=== PATIENT | male | born 1985 | race Caucasian/White ===

== ENCOUNTER 2018-05-23 14:31 | Observation (INO) ==
[2018-05-23] MEDS ORDERED: Potassium Chloride Elixir 20 MEQ/15 ML UDC PO ONE (19:33)
[2018-05-23] MEDS ORDERED: Famotidine 20 MG TABLET PO PRN (20:42)
--- NOTE | 2018-05-23 20:42 | Internal Med History&Physical ---
<Shefali Will - Last Filed: 05/23/18 21:44> Date of Encounter: 05/23/18 Time of Encounter: 20:42 Internal Medicine - H&P: HPI Chief complaint: syncope History of present illness: Mr. Bob is a 33 year old male sent to ED by PCP for syncopal episode. He was having monitor attached in PCP office when he became dizzy and passed out. Admits to urinary incontinence and diaphoresis but did not bite his tongue - he denies feeling of fatigue after this event but admits to "car sick " feeling on previous syncopal episode two weeks ago. He history of loss of consciousness triggered by medical treatment starting 5 years ago. He was taken to ED, were he was found to have sinus bradycardia with PVCs. Negative troponin. CMP with K 3.3 and glucose 113. Holter monitor ordered because of periods of palpitations, weakness and chest tightness triggered by exertion. He has previously been told that he had junctional rhythm. These episodes started in January and one 3 occasions have lasted for days before stopping on own. First time it occurred he went to ER and was told it was due to exhaustion. No other known past medical history. He occasional takes zantac for belching that is worse lately. Family history of palpitation and tachycardia in maternal uncle with unknown diagnosis - no other history of heart disease. Denies tobacco , EtOH or illicit drug use. Past Med Surg Social Fam HX - Past Medical History Medical history: no medical history Psychiatric history: no psych history - Past Surgical History Additional surgical history: femur fracture/orif - Social History Smoking Status: Former smoker Smokeless Tobacco Status: No Alcohol use: none Drug use: none Internal Medicine - H&P: Meds Ranitidine HCl [Zantac 75] 75 mg PO DAILY PRN 05/23/18 [History] 3 Allergy/AdvReac Type Severity Reaction Status Date / Time No Known Allergies Allergy Verified 05/23/18 20:13 All Systems PM: A 10-system review of systems was performed and is negative for pertinent findings except as documented above in the HPI. - Constitutional Constitutional: excessive sweating, no fatigue - EENT Eyes: blurry vision, loss of vision Nose, mouth and throat: no sore throat - Cardiovascular Cardiovascular ROS IM: diaphoresis, irregular heart rhythm, lightheadedness, palpitations, syncope, no chest pain, no dyspnea on exertion - Respiratory Respiratory: no cough, no wheezing - Gastrointestinal Gastrointestinal: no abdominal pain, no constipation, no diarrhea, no vomiting - Genitourinary Genitourinary ROS male: urinary incontinence, no dysuria, no hematuria - Neurological Neurological ROS: no confusion, no focal weakness - Constitutional Vitals: Pulse Resp BP Pulse Ox 92 18 138/99 98 05/23/18 17:28 05/23/18 17:28 05/23/18 17:28 05/23/18 17:28 General appearance: Present: cooperative, A&O X 3, no acute distress, answers questions appropriately Exam: PVC seen on tele I was in room after patient anticipates it - Head Head exam: Present: atraumatic, normocephalic - ENT ENT exam: Present: mucous membranes moist, normal oropharynx - Respiratory Respiratory exam: Present: CTAB. Absent: rales, wheezes - Cardiovascular Cardiovascular exam: Present: +S1, +S2, tachycardia. Absent: irregular rhythm - GI/Abdominal GI/Abdominal exam: Present: hyperactive bowel sounds. Absent: guarding, mass, rigid, tenderness - Extremities Exam Extremities exam: Present: full ROM, radial pulses palpable and symmetrical. Absent: pedal edema, tenderness - Neurological Exam Neurological exam: Present: CN II-XII intact, no focal deficits, strengths equal and symetr throughout. Absent: motor sensory deficit, pronater drift, facial droop, speech deficit - Psychiatric Psychiatric exam: Present: normal affect, normal mood - Skin Skin exam: Present: normal color. Absent: diaphoretic - Assessment and plan (1) Syncope Current Visit: No Status: Acute Assessment and plan: DDX includes vasovagal response or symptomatic arrhythmia unlikely to be TIA or ACS - continue tele monitor Qualifiers: Syncope type: vasovagal syncope Qualified Code(s): R55 - Syncope and collapse (2) PVCs (premature ventricular contractions) Current Visit: No Status: Acute Assessment and plan: Periodic PVCs seen on tele with unknown etiology. EKG from ED was NSR with with PVC on rhythm strip - repeat EKG - echo tomorrow - TSH normal - considered cardiology consult- per primary day team decision - will need Holter monitor out patient (3) Hypokalemia Current Visit: Yes Status: Acute Assessment and plan: Replete with 40mg potassium oral - repeat CMP (4) DVT prophylaxis Current Visit: Yes Status: Acute Assessment and plan: heparin sq - Time Spent With Patient Total time spent is greater than 50% in coordination of care (as documented) at patient's floor/unit and/or counseling patient: Caron Barrett - Last Filed: 05/23/18 23:01> Date of Encounter: 05/23/18 Internal Medicine - H&P: HPI Admitted From: Home Plans for Post Hospital Care: Home All Systems PM: A 10-system review of systems was performed and is negative for pertinent findings except as documented above in the HPI. - Constitutional Vitals: Temp Pulse Resp BP Pulse Ox 97.6 F 87 17 142/92 99 05/23/18 17:28 05/23/18 17:28 05/23/18 17:28 05/23/18 17:28 05/23/18 17:28 - Time Spent With Patient Total time spent is greater than 50% in coordination of care (as documented) at patient's floor/unit and/or counseling patient: - Attending Attestation 33 year old man with a history of syncopal episodes in the past; 1 episode during a blood draw and another episode during a minor surgical procedure for ingrown toenail. He is transferred here from [place] after being evaluated in the outpatient cardiology clinic for sinus bradycardia and possible junctional rhythm. As he was about to have the Holter monitor leads placed, he had a syncopal episode. He was noted diaphoretic and pale with a HR in the 50s. At the time he stated he felt drained. The patient is not on any Rx medications and takes OTC ranitidine prn. He denies nicotine use, illicit drugs and etoh use. On my assessment he was sitting comfortably in bed in no acute distress; reporting feeling fine. Physical exam remarkable for well-developed male moist mucous membranes and normal S1/S2 with no wheezing rales or rhonchi on chest auscultation, abdomen soft and non-tender to palpation and no peripheral signs of edema. EKG reviewed showing isolated PVCs. Lab work grossly unremarkable. Will keep on telemetry, obtain another EKG and check TTE for any morphologic anomalies. Suspect vasovagal syncope however. No acute intervention needed at this time. Can be seen by cardiology to schedule Holter monitoring and follow up as an outpatient.
[2018-05-23] MEDS ORDERED: Naloxone 0.4 MG/ML INJ IVP PRN (21:51)
[2018-05-23] MEDS: *HR* Heparin 5,000 UNIT/ML VIAL SQ SCH (22:32)
[2018-05-24 05:35] LABS: Amphetamine Screen,Urine Negative ng/mL (Cutoff=1000); Barbiturate Screen,Urine Negative ng/mL (Cutoff=200); Benzodiazepines Screen,Urine Negative ng/mL (Cutoff=200); Cannabinoid Screen,Urine Negative ng/mL (Cutoff = 50); Cocaine Screen,Urine Negative ng/mL (Cutoff= 300); Opiate Screen,Urine Negative ng/mL (Cutoff=300); Phencyclidine Screen,Urine Negative ng/mL (Cutoff=25)
[2018-05-24 06:19] LABS: Basophils % 0.4 %; Eosinophils # 0.1 K/mcL (0.0-0.6); Eosinophils % 0.9 %; Hematocrit 43.8 % (37.5-50.1); Hemoglobin 15.1 g/dL (12.9-16.9); Immature Granulocytes % 0.4 % (0-4); Lymphocytes # 2.6 K/mcL (0.6-4.6); Lymphocytes % 33.2 %; Mean Corpuscular HGB Conc 34.5 g/dL (31.6-35.5); Mean Corpuscular Hemoglobin 30.8 pg (28.0-33.3); Mean Corpuscular Volume 89.4 fL (83.0-100.0); Mean Platelet Volume 9.6 fL (9.4-12.4); Monocytes # 0.6 K/mcL (0.0-1.3); Monocytes % 7.3 %; Neutrophils # 4.5 K/mcL (1.6-8.9); Platelet Count 258 K/mcL (140-400); Red Cell Distribution Width 12.3 % (11.5-14.5); Segmented Neutrophils % 57.8 %
[2018-05-24] MEDS: *HR* Heparin 5,000 UNIT/ML VIAL SQ SCH ×3 (06:28→22:53)
[2018-05-24 06:37] LABS: Chol/HDL Ratio 4.2 (0-4.9)
[2018-05-24 06:40] LABS: Alanine Aminotransferase 26 Units/L (7-52); Albumin 4.4 g/dL (3.5-5.7); Albumin/Globulin Ratio 1.6 (1.1-2.2); Alkaline Phosphatase 72 Units/L (34-104); Aspartate Amino Transferase 15 Units/L (13-39); BUN/Creatinine Ratio 12 (6-26); Bilirubin,Total 0.5 mg/dL (0.3-1.0); Blood Urea Nitrogen 10 mg/dL (6-20); Calcium 9.6 mg/dL (8.6-10.3); Carbon Dioxide 25 mEq/L (23-29); Chloride 107 mEq/L (98-107); Globulin 2.7 g/dL (2.4-3.5); Glucose 116 mg/dL (70-105); Osmolality,Calculated 288 (280-300); Potassium 3.8 mEq/L (3.5-5.1); Sodium 139 mEq/L (136-145); Total Protein 7.1 g/dL (6.4-8.9); eGFR For Non-African Americans > 60 (> 60)
[2018-05-24 07:21] LABS: Estimated Average Glucose 114 mg/dl; Hemoglobin A1C 5.6 %
--- NOTE | 2018-05-24 08:12 | Internal Med Progress Note ---
<Geno Leary - Last Filed: 05/24/18 13:14> Hospitalist Progress Note - Encounter Date of Encounter: 05/24/18 Time of Encounter: 09:00 - Subjective Interval History: The patient is a very pleasant 33 year old male presenting to [facility] on 05/23/18 for syncopal episode. Patient was being seen by his PCP to have a holter monitor attached when he became dizzy, experienced palpitations and diaphoresis and passed out. He had urinary incontinence but he did not bite his tongue. He had fatigue after the event. Patient has a history of 2 prior syncopal episodes. The first occurred 5 years ago when he was being seen by a doctor for an ingrown toenail. The second occurred 2 weeks ago while he was having blood drawn. Patient was undergoing a holter monitor for episodes of palpitations and chest tightness that began in January. Since January he has had 3 major episodes of chest tightness and severe palpitations triggered by exertion. The first lasted 4 days, the second lasted a week and a half, the 3rd episode he has been experiencing since last Wednesday. He also reports minor intermittent 5-10 minute episodes of palpitations in between these larger episodes. He had previously been told that he had a junctional rhythm. Family history of tachycardia and palpitations in his mother and maternal uncle with unknown diagnosis. No other personal or family history of heart disease known. Denies tobacco, EtOH or illicit drug use. Since arriving at [facility], bradycardia and PVCs have been seen on telemetry. EKG showed Sinus rhythm with PVCs and first degree heart block. Troponins were negative. This is hospitalization day number 2. The patient was seen and examined at bedside this morning. Telemetry strip was uploaded today showing more PVCs. Today, reports that he is still experiencing intermittent palpitations and chest tightness but it is not as bad as his 3 prior severe episodes. He also states he has chest discomfort on the left lower sternal border with deep breathing. He describes this as a chronic feeling that he gets, like an air bubble that then resolves after he either belches or passes gas some time after the feeling begins. He has been taking zantac for this. The patient denies any lightheadedness, dizziness, vision changes, headache, shortness of breath, cough , wheezing, sputum production, abdominal pain, nausea, vomiting, bowel changes, urinary changes, edema, fever or chills. - Exam Vitals: Temp Pulse Resp BP Pulse Ox 97.9 F 63 16 131/87 97 05/24/18 07:20 05/24/18 07:20 05/24/18 07:20 05/24/18 07:20 05/24/18 07:20 Exam: Physical Exam: GENERAL: Patient is a well-nourished 33 year old male in no acute distress with appropriate affect. Alert & oriented x3. HEENT: Head is normocephalic, atraumatic, well formed. EYES: PERRLA, EOMI. MOUTH : Oropharynx clear. Mucous membranes moist. NECK: Supple, no masses, trachea midline. No JVD noted. CV: Bradycardia, regular rhythm. Normal S1, S2 with no clicks, murmurs, gallops , or rubs. After palpation of the sternum, patient experiencing a discomfort that he described as being on the inside and the same as the discomfort he experiences chronically that resolves with belching or passing gas. PULMONARY: Breath sounds are clear and equal bilaterally. Symmetrical chest expansion. No wheeze, rales or rhonchi. Good effort. GI: Abdomen is soft, nondistended, nontender, positive bowel sounds x 4 present and appropriate. No peritoneal signs or guarding. No palpable masses. SKIN: Warm, dry and intact. No rashes, bruising, cyanosis or non healing lesions are seen. No edema is noted. NEUROLOGICAL: Alert, awake. CN II-XII grossly intact. Patient is moving all extremities and following commands appropriately. No focal deficits are noted. Muscle strength 5/5 x 4 extremities. VASCULAR/EXTREMITIES: No cyanosis, clubbing, or edema in lower extremities. - Assessment and Plan (1) Loss of consciousness Current Visit: Yes Status: Acute Assessment and Plan: Patient describes what appears to be classic vasovagal syncope with each episode being associated with some medical professional encounter. Will order TTE to investigate any structural heart abnormalities d/t abnormal telemetry and EKG. Will order Lyme titers to r/o Lyme carditis due to endemic area and patients frequent time outside. UDS negative continue tele monitor TTE, Carotid Doppler Lyme Titers Repeat EKG Cardiology consulted (2) Palpitations Current Visit: Yes Status: Acute Assessment and Plan: Periodic PVCs seen on tele with unknown etiology. EKG from ED was NSR with with PVC on rhythm strip - repeat EKG - echo today - TSH normal - Lyme Titers - Cardiology consulted (3) Hypokalemia Current Visit: Yes Status: Resolved Comments: Repleted with 40mg potassium oral - repeat CMP showed resolution of hypokalemia at 3.8 this AM (4) DVT prophylaxis Current Visit: Yes Status: Acute Assessment and Plan: SQ Heparin (5) Hyperglycemia Current Visit: Yes Status: Acute Comments: Patient's FBG was foudn to be mildly elevated this AM at 116. Recommend following up as outpatient with PCP. Will educate patient on DM, exercise and diet. (6) Hypercholesteremia Current Visit: Yes Status: Acute Comments: Patient's LDL was found to be elevated at 129 this AM. Recommend following up with PCP as outpatient. Will educate patient on diet. DVT Prophylaxis: SQ Heparin - Summary of Assessment and Plan Summary of Assessment and Plan: The foregoing assessment and plan have been reviewed with my resident, Dr. Mcallister, and attending physician, Dr. Lopez, who are in agreement. Please see note from my attending for any details or changes. - Time Spent with Patient Total time spent is greater than 50% in coordination of care (as documented) at patient's floor/unit and/or counseling patient: 25 - 35 minutes Plan of Care Discussed with: patient Internal Medicine: Result - Labs CBC & Chem 7: 05/24/18 05:47 05/24/18 05:47 Labs: Short CBC 05/24/18 Range/Units 05:47 WBC 7.8 (4.3-11.1) K/mcL Hgb 15.1 (12.9-16.9) g/dL Hct 43.8 (37.5-50.1) % Plt Count 258 (140-400) K/mcL Neutrophils # 4.5 (1.6-8.9) K/mcL BMP 05/24/18 05:47 Sodium 139 Potassium 3.8 Chloride 107 Carbon Dioxide 25 BUN 10 Creatinine 0.82 Glucose 116 H Calcium 9.6 Liver Function 05/24/18 Range/Units 05:47 Total Bilirubin 0.5 (0.3-1.0) mg/dL AST 15 (13-39) Units/L ALT 26 (7-52) Units/L Alkaline Phosphatase 72 (34-104) Units/L Albumin 4.4 (3.5-5.7) g/dL - EKG Interpretation EKG Interpreted by Myself: Yes EKG shows normal: sinus rhythm Rate: normal (Sinus rhythm with PVCs) - Prior EKG Data Prior EKG available for review: yes When compared to previous EKG: there is no significant change Consult Discharge Plan - Plan Referrals: Mariana Vega, [employer] [Primary Care Provider] - <Navneet Lopez - Last Filed: 05/24/18 19:06> Hospitalist Progress Note - Encounter Date of Encounter: 05/24/18 - Exam Vitals: Temp Pulse Resp BP Pulse Ox 97.8 F 78 16 134/87 97 05/24/18 15:11 05/24/18 15:11 05/24/18 15:11 05/24/18 15:11 05/24/18 15:11 - Assessment and Plan (1) Vasovagal syncope Current Visit: Yes Status: Acute (2) Palpitations Current Visit: Yes Status: Acute - Time Spent with Patient Total time spent is greater than 50% in coordination of care (as documented) at patient's floor/unit and/or counseling patient: Internal Medicine: Result - Labs CBC & Chem 7: 05/24/18 05:47 05/24/18 05:47 Labs: Short CBC 05/24/18 Range/Units 05:47 WBC 7.8 (4.3-11.1) K/mcL Hgb 15.1 (12.9-16.9) g/dL Hct 43.8 (37.5-50.1) % Plt Count 258 (140-400) K/mcL Neutrophils # 4.5 (1.6-8.9) K/mcL BMP 05/24/18 05:47 Sodium 139 Potassium 3.8 Chloride 107 Carbon Dioxide 25 BUN 10 Creatinine 0.82 Glucose 116 H Calcium 9.6 Liver Function 05/24/18 Range/Units 05:47 Total Bilirubin 0.5 (0.3-1.0) mg/dL AST 15 (13-39) Units/L ALT 26 (7-52) Units/L Alkaline Phosphatase 72 (34-104) Units/L Albumin 4.4 (3.5-5.7) g/dL - Attending Attestation The history, physical exam, and medical decision making was performed by the medical student either while I was physically present and actively involved or I personally re-performed the exam and medical decision making. I have verified the accuracy of the medical student's documentation with regards to the history, physical exam findings, and medical decision making on 05/24/18. Mr Bob is currently in observation due to syncope. He remains moderate to high risk. Mr Bob feels OK. He is being evaluated by cardiology. No fever or chills. No GI symptoms. No CP or SOB. Exam Alert Comfortable Mucus membranes dry Heart not tachy No wheeze No focal neuro deficit No edema Abd soft No rash I/P 1. Syncope - vasovagal Further diagnoses and plan as above.
--- NOTE | 2018-05-24 08:59 | Electrocardiograph Report ---
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
--- NOTE | 2018-05-24 09:00 | Electrocardiograph Report ---
[address] [place], [place] [address] Test Date: 2018-05-24 Pat Name: Abdon Bob Department: 111 Room: 2NE16 Gender: M Lens Dotter: : 1985 Requested By: Gerard Willett Order Number: [id number] Reading MD: Peter Albarado Measurements Intervals [place] Rate: 67 P: -12 ME: 285 QRS: 39 QRSD: 102 T: 35 QT: 389 QTc: 405 Interpretive Statements SINUS RHYTHM WITH FIRST DEGREE AV BLOCK Electronically Signed On 05-24-2018 8:58:52 EDT by Peter Albarado
--- NOTE | 2018-05-24 09:47 | Cardiology Consult Note ---
<Armando Short - Last Filed: 05/24/18 12:20> Date of Encounter: 05/24/18 Time of Encounter: 09:00 Assessment and Plan (1) Loss of consciousness Current Visit: Yes Status: Acute Reports three episodes of loss of consciousness while sitting. All occur in the health care setting and are associated with pain. Likely vasovagal syncope. It was noted that EKG showed NSR prior to event and SR with 1st degree block after event. Telemetry shows SR with a lot of artifact. Encouraged liberal fluids and minimize caffeine. Reports drinking 4 cups of coffee daily. (2) Palpitations Current Visit: Yes Status: Acute Reports frequent palpitations although they often are felt in his abdomen. Currently SR. Rare PVC on telemetry review. Continue to monitor telemetry. Will continue holter 48 hour to observe PVC burden. Discussion w patient/family: The assessment and plan as outlined above was discussed with the patient and/or family members who expressed understanding and agreement. All questions were answered. Thank you for involving us in the care of your patient. Please call with any questions. History of Present Illness Consult date: 05/24/18 Requesting physician: Geno Leary Consult reason: Syncope, palpitations Chief complaint: Loss of conciousness, palpitations History of present illness: Mr. Bob is a 33 year old male with history of syncope who presents after having loss of consciousness while a holter monitor was placed. He states that he experienced syncopal episodes in the past. Each incident occurred in a health care setting when he was having a procedure. One time he was having his blood drawn and another while he was having an ingrown toenail repaired. He states that it did hurt when he had his holter placed because they used sand paper on his chest. During the event he does feel lightheaded and diaphoretic and then he feels overall unwell feeling afterwards. A holter monitor was ordered for palpitations. He reports feeling palpitations that feels like a bubbling in his RUQ of his abdomen and then often up into his chest. The palpitations last for up to a week at a time. C/o intermittent chest tightness with the palpitations. Past Med Surg Social Fam HX - Past Medical History Attestation: Yes The following information was validated with the patient. Source: patient Medical history: no medical history Psychiatric history: no psych history - Past Surgical History Additional surgical history: femur fracture/orif - Social History Smoking Status: Former smoker Smokeless Tobacco Status: No Alcohol use: none Drug use: none Medications and Allergies Ranitidine HCl [Zantac 75] 75 mg PO DAILY PRN 05/23/18 [History] 3 Allergy/AdvReac Type Severity Reaction Status Date / Time No Known Allergies Allergy Verified 05/23/18 20:13 All Systems Review: The remainder of the systems were reviewed and are negative Physical Examination Vital Signs, Last 4 Hours Temp Pulse Resp BP Pulse Ox 05/24/18 07:20 97.9 F 63 16 131/87 97 General: Conversant, No Apparent Distress HEENT: Atraumatic, Normocephaly, Mucus Membranes Moist Neck: No JVD, Normal carotid pulses Cardiac: Reg Rate and Rhythm, Normal S1 and S2, No Murmur Lungs: Normal Breath Sounds, No Wheeze, Rales, Rhonchi Neuro: Alert and responsive, No focal deficits noted Abdomen: Soft, Non-Tender Skin: No rashes noted on visualized skin Musculoskeletal: No Chest Wall Tenderness Extremities: No Clubbing, No Cyanosis, No Edema, Normal Pulses Results 05/24/18 05:47 05/24/18 05:47 Lab Results 05/24/18 05/24/18 05:47 05:47 WBC 7.8 Hgb 15.1 Hct 43.8 Plt Count 258 Sodium 139 Potassium 3.8 Chloride 107 Carbon Dioxide 25 BUN 10 Creatinine 0.82 Glucose 116 H Calcium 9.6 Total Bilirubin 0.5 AST 15 ALT 26 Alkaline Phosphatase 72 - Imaging and Cardiology Echo: pending - EKG Interpretation EKG results cardiology: personally reviewed Consult Discharge Plan - Plan Referrals: Mariana Vega, PASTRY BAKER [Primary Care Provider] - < A - Last Filed: 05/24/18 15:25> Date of Encounter: 05/24/18 Assessment and Plan (1) Vasovagal syncope Current Visit: Yes Status: Acute Has had 3 lifetime episodes of syncope all preceded by a prodrome of lightheadedness. Highly suggestive of vasovagal syncope. Counseled on counterpressure maneuvers and adequate hydration. (2) Palpitations Current Visit: Yes Status: Acute Reports frequent palpitations although they often are felt in his abdomen. Currently SR. Rare PVC on telemetry review. Continue to monitor telemetry. Will continue holter 48 hour to observe PVC burden. (3) Prolonged NM interval present on electrocardiogram Current Visit: Yes Status: Acute Intermittent prolonged NM interval on EKG, not temporally associated with symptoms. Will observe for now. Discussion w patient/family: The assessment and plan as outlined above was discussed with the patient and/or family members who expressed understanding and agreement. All questions were answered. Thank you for involving us in the care of your patient. Please call with any questions. History of Present Illness History of present illness: Mr. Bob is a 33 year old male All Systems Review: The remainder of the systems were reviewed and are negative Physical Examination Vital Signs, Last 4 Hours Temp Pulse Resp BP Pulse Ox 05/24/18 15:11 97.8 F 78 16 134/87 97 05/24/18 11:46 97.9 F 76 16 126/87 97 Results 05/24/18 05:47 05/24/18 05:47 Lab Results 05/24/18 05/24/18 05:47 05:47 WBC 7.8 Hgb 15.1 Hct 43.8 Plt Count 258 Sodium 139 Potassium 3.8 Chloride 107 Carbon Dioxide 25 BUN 10 Creatinine 0.82 Glucose 116 H Calcium 9.6 Total Bilirubin 0.5 AST 15 ALT 26 Alkaline Phosphatase 72 TSH 1.637
[2018-05-24 10:39] LABS: Thyroid Stimulating Hormone 1.637 mcIU/mL (0.340-5.600)
[2018-05-24] MEDS: Acetaminophen 325 MG TABLET PO PRN ×2 (11:59→20:45)
--- NOTE | 2018-05-24 17:17 | Electrocardiograph Report ---
[place] [address] Test Date: 2018-05-24 Pat Name: Abdon Bob Department: 111 Room: E16 Gender: M Promotions Assistant: [id number] : 1985 Requested By: Armando Short Order Number: [id number] Reading MD: Coby Cervantes Measurements Intervals [place] Rate: 69 P: LA: 0 QRS: 38 QRSD: 97 T: 28 QT: 368 QTc: 387 Interpretive Statements NORMAL SINUS RHYTHM WITH FIRST DEGREE AVB Electronically Signed On 05-24-2018 17:15:56 EDT by Coby Cervantes
[2018-05-25] MEDS: *HR* Heparin 5,000 UNIT/ML VIAL SQ SCH (06:03)
[2018-05-25 06:28] VITALS: BP 124/79
[2018-05-25 07:29] LABS: Basophils % 0.4 %; Eosinophils # 0.1 K/mcL (0.0-0.6); Hematocrit 43.4 % (37.5-50.1); Immature Granulocytes % 0.2 % (0-4); Lymphocytes # 2.2 K/mcL (0.6-4.6); Lymphocytes % 43.2 %; Mean Corpuscular HGB Conc 34.6 g/dL (31.6-35.5); Mean Corpuscular Hemoglobin 30.8 pg (28.0-33.3); Mean Corpuscular Volume 89.1 fL (83.0-100.0); Mean Platelet Volume 9.5 fL (9.4-12.4); Monocytes # 0.4 K/mcL (0.0-1.3); Monocytes % 8.4 %; Neutrophils # 2.4 K/mcL (1.6-8.9); Platelet Count 245 K/mcL (140-400); Red Blood Count 4.87 M/mcL (4.19-5.50); Red Cell Distribution Width 12.1 % (11.5-14.5); Segmented Neutrophils % 46.8 %
[2018-05-25 07:45] LABS: BUN/Creatinine Ratio 18 (6-26); Blood Urea Nitrogen 14 mg/dL (6-20); Calcium 9.4 mg/dL (8.6-10.3); Carbon Dioxide 24 mEq/L (23-29); Chloride 106 mEq/L (98-107); Glucose 107 mg/dL (70-105); Osmolality,Calculated 283 (280-300); Potassium 3.9 mEq/L (3.5-5.1); Sodium 136 mEq/L (136-145); eGFR For Non-African Americans > 60 (> 60)
--- NOTE | 2018-05-25 08:53 | Discharge Summary ---
<Navneet Lopez - Last Filed: 05/25/18 13:31> Date of Encounter: 05/25/18 - Discharge Diagnosis (1) Palpitations Priority: Secondary Status: Acute (2) Vasovagal syncope Priority: Secondary Status: Acute (3) Syncope due to orthostatic hypotension Priority: Primary Status: Resolved Assessment and Plan: Associated with vasovagal response. Hospital course: Mr. Bob is a 33 year old male - Time Spent with Patient Total time spent providing and/or coordinating discharge services: 38min - Discharge Medications Home Medications: Ranitidine HCl [Zantac 75] 75 mg PO DAILY PRN 05/23/18 [History] Allergies/Adverse Reactions: 3 Allergy/AdvReac Type Severity Reaction Status Date / Time No Known Allergies Allergy Verified 05/23/18 20:13 Date of admission: 05/23/18 17:27 Primary care physician: Mariana Vega CNP Consults: 05/24/18 06:16 Consult to Cardiology [CONS] Routine Comment: Consulting Provider: [facility] [place] Reason for Consult: 1st degree block with PVC and syncope Call Completed: No - Constitutional Vitals: Temp Pulse Resp BP Pulse Ox 97.6 F 59 15 124/79 97 05/25/18 06:27 05/25/18 06:27 05/25/18 06:27 05/25/18 06:27 05/25/18 06:27 - Patient Status Disposition: Home, Self-Care Condition: Good - Discharge Instructions Instructions: Holter Monitoring (DC), Syncope (DC) Follow Up With: Mariana Vega CNP [Primary Care Provider] - 05/30/18 1:45 pm Armando Short CNP [Advanced Practice Nurse] - Forms: Work/School Release Additional Instructions: Follow up with your PCP in 3-5 days. Talk to your PCP about your elevated glucose and lipid levels seen during this admission. Follow up with cardiology as directed. Continue home medications. Return to the emergency department if symptoms recur or if new concerns arise. - Attending Attestation I examined this patient and my medical decision-making was reviewed with the Resident Physician on 05/25/18. I agree with the documented findings, disposition and treatment plan as described except to the extent set forth below. Mr Bob has been in observation for syncope and palpitations. He has normal echo and no further issues in hospital. Likely this was vasovagal syncope. He is now afebrile and ready for discharge home. He is to have holter placed at discharge. Exam alert Comfortable Mucus membranes dry Heart reg No wheeze abd soft Plan D/C home today Follow up as outpatient. <Venice Mcallister N - Last Filed: 05/25/18 14:14> - NOTES TO OUTPATIENT PROVIDER Notes to Outpatient Provider: Patient was evaluated for syncopal episode, which was felt to be vasovagal in nature. During admission, he was noted to be prediabetic. Labs demonstrated high LDL cholesterol. He was instructed to follow up with his PCP regarding these findings. He was discharged with 48-hour holter monitor in place. Orders not resulted at time of discharge: Pending orders 05/25/18 06:57 Lyme Disease Total Antibody AM 0400 05/25/18 07:40 EKG [ECG 12 lead ECG] [ECG] Routine Date of Encounter: 05/25/18 Time of Encounter: 08:53 - Discharge Diagnosis (1) Palpitations Priority: Secondary Status: Acute (2) Vasovagal syncope Priority: Primary Status: Acute Hospital course: Mr. Bob is a 33 year old male who presented to [facility] on 05/23/18 for syncopal episode. Patient was being seen by his PCP to have a holter monitor attached when he became dizzy, experienced palpitations and diaphoresis and passed out. He had urinary incontinence but he did not bite his tongue. He had fatigue after the event. Patient reported a history of 2 prior syncopal episodes. The first occurred 5 years ago when he was being seen by a doctor for an ingrown toenail. The second occurred 2 weeks ago while he was having blood drawn. Patient was undergoing a holter monitor for episodes of palpitations and severe palpitations triggered by exertion. Since January he has had 3 major episodes of chest tightness a week and a half, the 3rd episode he has been experiencing since last Wednesday. He also reported minor intermittent 5-10 minute episodes of palpitations in between these larger episodes. In the ED, patient was asymptomatic but episodes of junctional bradycardia and PVCs were seen on telemetry but initial EKG only showed sinus rhythm. Troponins were negative. Patient was admitted for evaluation of syncope. Labs showed slightly low potassium at 3.3, patient was given 40 meq of KCl which resolved the hypokalemia. Telemetry strip demonstrated sinus rhythm with PVCs but a second EKG showed normal sinus rhythm. Further workup, including echocardiogram , bilateral carotid duplex ultrasound, TSH, and lyme tities, was performed. Echocardiogram demonstrated LVEF of 60%, normal LV structure and function, normal right ventricle structure and function, no significant valvular dysfunction and no evidence of pulmonary hypertension. Carotid doppler study was negative with exception of non-stenotic plaque at the bifurcation of the carotid artery on the left. TSH was WNL. Lyme titer was negative. Repeat EKGs showed normal sinus rhythm with first degree AVB. Patient reported that he was still having intermittent mild palpitations and chest tightness. Cardiology evaluated the patient and suspected vasovagal syncope. They recommended holter monitoring as an outpatient to investigate PVCs and first degree AVB seen on tele/EKG. On day of discharge, patient reported some improvement since admission. He voiced understanding that he will need to follow up with the cardiology office for the holter monitoring. Patients labs also showed hyperglycemia while he was hospitalized (107-116) and his HA1c was 5.6. It was explained to the patient that he is borderline pre-diabetic and that he should follow up with his PCP for this. DM, diet, and exercise education was also provided. Patients LDL cholesterol was also elevated (129) during admission, and patient was educated on diet and instructed to follow up with his PCP. The patient was alert and oriented x 3 and denied any lightheadedness, dizziness, vision changes, headache , shortness of breath, cough, wheezing, sputum production, abdominal pain, nausea, vomiting, bowel changes, urinary changes, edema, fever, or chills. Discharge discussed with: patient, family, nurse - Time Spent with Patient Total time spent providing and/or coordinating discharge services: Date of admission: 05/23/18 17:27 Primary care physician: Mariana Vega CNP Consults: 05/24/18 06:16 Consult to Cardiology [CONS] Routine Comment: Consulting Provider: [facility] [place] Reason for Consult: 1st degree block with PVC and syncope Call Completed: No Discharging clinician: Venice Mcallister Anticipated date of discharge: 05/25/18 - Constitutional Vitals: Temp Pulse Resp BP Pulse Ox 97.6 F 59 15 124/79 97 05/25/18 06:27 05/25/18 06:27 05/25/18 06:27 05/25/18 06:27 05/25/18 06:27 Exam: GENERAL: Patient is a well-nourished 33 year old male in no acute distress HEENT: Head is normocephalic, atraumatic, well formed. EYES: PERRLA, EOMI. MOUTH : Oropharynx clear. Mucous membranes moist. NECK: Supple, no masses, trachea midline. No JVD noted. CV: Bradycardia, regular rhythm. Normal S1, S2 with no clicks, murmurs, gallops , or rubs. PULMONARY: Breath sounds are clear and equal bilaterally. Symmetrical chest expansion. No wheeze, rales or rhonchi. Good effort. GI: Abdomen is soft, nondistended, nontender, positive bowel sounds x 4 present and appropriate. No peritoneal signs or guarding. No palpable masses. SKIN: Warm, dry and intact. No rashes, bruising, cyanosis or non healing lesions are seen. No edema is noted. NEUROLOGICAL: Alert, awake. CN II-XII grossly intact. Patient is moving all extremities and following commands appropriately. No focal deficits are noted. Muscle strength 5/5 x 4 extremities. VASCULAR/EXTREMITIES: No cyanosis, clubbing, or edema in lower extremities. STRUCTURAL EXAM: No tissue asymmetry, tissue texture changes or tenderness noted. Full ROM throughout. No gross deformities. - Patient Status Functional capacity at discharge: independent ambulation Overall status at discharge: patient is progressing back to baseline - Diet and Activity Activity: increase activity as tolerated Diet: regular diet
--- NOTE | 2018-05-25 13:06 | Cardiology Progress Note ---
Date of Encounter: 05/25/18 Time of Encounter: 11:30 Assessment and Plan (1) Vasovagal syncope Current Visit: Yes Status: Acute Reports three episodes of loss of consciousness while sitting. All occur in the health care setting and are associated with pain. Likely vasovagal syncope. No concerning arrhythmias noted during event. Teleetry review shows SR. 1st degree block. Rare PVC seen (7 in 24 hours). EKG showed SR with 1st degree block, variable HI interval at times. TTE shows preserved EF. No significant valvular disease. Encouraged liberal fluids and minimize caffeine. Reports drinking 4 cups of coffee daily. 48 hour holter monitor ordered for placement at d/c. We will coordinate f/u with [facility] in [place]. (2) Palpitations Current Visit: Yes Status: Acute Reports frequent palpitations although they often are felt in his abdomen and radiate to his lower left chest. Currently SR. Rare PVC on telemetry review. Continue to monitor telemetry. Will continue holter 48 hour at d/c to observe PVC burden. (3) Prolonged HI interval present on electrocardiogram Current Visit: Yes Status: Acute Intermittent prolonged HI interval on EKG noted. EKG today shows SR. Normal HI interval. 173 ms. Discussion w patient/family: The assessment and plan as outlined above was discussed with the patient and/or family members who expressed understanding and agreement. All questions were answered. Thank you for involving us in the care of your patient. Please call with any questions. Subjective Principal diagnosis: vasovagal syncope Interval history: Mr. Bob reports he is feeling well. No recurrent symptoms overnight. Objective Vital Signs Temp Pulse Resp BP Pulse Ox 05/25/18 06:27 97.6 F 59 15 124/79 97 05/25/18 04:00 97.6 F 85 16 131/77 95 05/24/18 20:57 96 05/24/18 20:48 98.1 F 66 16 134/88 96 05/24/18 15:11 97.8 F 78 16 134/87 97 Intake and Output 05/24/18 05/25/18 05/25/18 23:59 07:59 15:59 Intake Total 0 / 0 0 / 0 Output Total 1400 / 1400 0 / 0 Balance -1400 / -1400 0 / 0 0 / 0 Intake: Oral 0 / 0 0 / 0 Output: Urine 1400 / 1400 0 / 0 Other: Meal Breakfast Percent of Meal Consumed 90% # Voids 1 Weight 96.1 kg Patient Weight 05/25/18 23:59 Weight 96.1 kg General: Conversant, No Apparent Distress HEENT: Atraumatic, Normocephaly, Mucus Membranes Moist Neck: No JVD, Normal carotid pulses Cardiac: Reg Rate and Rhythm, Normal S1 and S2, No Murmur Lungs: Normal Breath Sounds, No Wheeze, Rales, Rhonchi Neuro: Alert and responsive, No focal deficits noted Abdomen: Soft, Non-Tender Skin: No rashes noted on visualized skin Musculoskeletal: No Chest Wall Tenderness Extremities: No Clubbing, No Cyanosis, No Edema, Normal Pulses Results 05/25/18 06:57 05/25/18 06:57 Lab Results 05/25/18 05/25/18 06:57 06:57 WBC 5.1 Hgb 15.0 Hct 43.4 Plt Count 245 Sodium 136 Potassium 3.9 Chloride 106 Carbon Dioxide 24 BUN 14 Creatinine 0.80 Glucose 107 H Calcium 9.4 Echocardiogram 05/24/18 19:29 Impressions: LVEF 60%. Normal LV chamber size, wall thickness and function. Normal left ventricular diastolic function. Normal right ventricular structure and function. No evidence of a PFO with agitated saline contrast. No evidence of pulmonary hypertension. No significant valvular dysfunction. Left Ventricular Wall Motion: Rest Echo Findings All wall segments showed normal motion. - Imaging and Cardiology Stress Test: report reviewed Echo: report reviewed - EKG Interpretation EKG results cardiology: personally reviewed Consult Discharge Plan - Plan Instructions: Holter Monitoring (DC), Syncope (DC) Additional Instructions: Follow up with your PCP in 3-5 days. Talk to your PCP about your elevated glucose and lipid levels seen during this admission. Follow up with cardiology as directed. Continue home medications. Return to the emergency department if symptoms recur or if new concerns arise. Referrals: Mariana Vega CNP [Primary Care Provider] - Armando Short CNP [Advanced Practice Nurse] -
--- NOTE | 2018-05-27 18:12 | Electrocardiograph Report ---
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
== END 2018-05-25 14:00 | disposition home or self-care (01) ==
LOC: 2NENU → SUATTDRO 17:27
PROVIDERS: ADMIT Student in an Organized Health Care Education/Training Program; ATTEND Internal Medicine